=== PATIENT | male | born 1975 | race Caucasian/White ===

== ENCOUNTER 2017-08-30 11:07 | Emergency (ER) | payer BC ==
[2017-08-30 12:16] VITALS: BP 139/91
--- NOTE | 2017-08-30 12:39 | UC ---
Lower Extremity/Ankle HPI - HPI Summary HPI Summary: 42 y/o male presents to the urgent care c/o first knuckle big toe pain since yesterday. Pt reports is progressively getting worse w/ mild redness and swelling. Pain is 5/10 at rest and 7/10 w/ walking. Pt denies any injury or HX of GOUT. Pt has not taking anything to alleviate symptoms. Pt deneis SOB, chest pain, abdominal pain, N/V/D. He has not seen his PCP for the past year. - History of Current Complaint Chief Complaint: UCLowerExtremity Stated Complaint: SWOLLEN TOE Time Seen by Provider: 08/30/17 12:36 Hx Obtained From: Patient Onset/Duration: Gradual Onset, Lasting Days - 1 day, Still Present, Worse Since - this morning Severity Initially: Moderate Severity Currently: Moderate Pain Intensity: 7 - w/ movement Pain Scale Used: 0-10 Numeric Aggravating Factor(s): Ambulation Alleviating Factor(s): Rest, OTC Meds Able to Bear Weight: Yes - Risk Factors Gout Risk Factors: Age Over 40, Male, Hypertension, Obesity DVT Risk Factors: Negative Septic Arthritis Risk Factor: Negative - Allergies/Home Medications Allergies/Adverse Reactions: Allergies Allergy/AdvReac Type Severity Reaction Status Date / Time No Known Allergies Allergy Verified 08/30/17 12:07 Home Medications: Home Medications ALPRAZolam TAB* [Xanax TAB*] 0.5 mg PO DAILY 08/30/17 [History Confirmed ] Acetaminophen [Acetaminophen Extra Strength] 1,000 mg PO ONCE 08/30/17 [History Confirmed 08/30/17] Citalopram TAB* [Celexa TAB*] 20 mg PO DAILY 08/30/17 [History Confirmed ] Lisinopril TAB* [Prinivil TAB 10 MG*] 5 mg PO DAILY 08/30/17 [History Confirmed 08/30/17] PMH/Surg Hx/FS Hx/Imm Hx Previously Healthy: Yes Endocrine History: Dyslipidemia - diet control Cardiovascular History: Hypertension Other Neurological History: Herniated disc in the lower back Psychological History: Anxiety, Depression - Surgical History Surgical History: Yes Surgery Procedure, Year, and Place: hand surgery 1999 - Family History Known Family History: Positive: Cardiac Disease, Hypertension - Social History Occupation: Employed Full-time Lives: With Family Alcohol Use: Occasionally Substance Use Type: None Smoking Status (MU): Never Smoked Tobacco Review of Systems Constitutional: Negative Skin: Negative Eyes: Negative ENT: Negative Respiratory: Negative Cardiovascular: Negative Gastrointestinal: Negative Genitourinary: Negative Motor: Negative Neurovascular: Negative Musculoskeletal: Decreased ROM - RT first toe, Other: - RT toe pain Neurological: Negative Psychological: Negative Is Patient Immunocompromised?: No All Other Systems Reviewed And Are Negative: Yes Physical Exam - Summary Physical Exam Summary: Vital Signs Reviewed: Yes General : well developed, well nourished male w/o any apparent distress Eyes: Positive: Conjunctiva Clear - PERRLA, EOMI ENT: Positive: Normal ENT inspection, Hearing grossly normal, Pharynx normal, TMs normal Neck: Positive: Supple, Nontender, No Lymphadenopathy Respiratory: Positive: Chest non-tender, Lungs clear, Normal breath sounds, No respiratory distress Cardiovascular: Positive: RRR, No Murmur, Pulses Normal Abdomen Description: Positive: Nontender, No Organomegaly, Soft. Negative: CVA Tenderness (R), CVA Tenderness (L) Bowel Sounds: Positive: Present Musculoskeletal: Positive: Strength Intact, ROM Intact, No Edema, Other: - Foot/ Toes: Pt is able to bear weight but ambulate with mild limping. RT foot :No surface trauma, ecchymosis, erythema, lesions, ulcers or break in skin integrity. The R foot is without obvious asymmetry or deformity when compared to the L foot. No bony step-off, No tenderness to palpation over toes, point tenderness over the dorsal side of RT first MTPJ w/ mild redness, no warm or swelling observed, no tenderness of hindfoot, FROM plantar/dorsiflexion, inversion/eversion of the RT foot. Distal motor and neurovascular status are intact. Neurological Exam: Normal Psychological Exam: Normal Skin Exam: Normal Triage Information Reviewed: Yes Vital Signs: Initial Vital Signs Temp 98.9 F 08/30/17 12:10 Pulse 79 08/30/17 12:10 Resp 16 08/30/17 12:10 BP 139/91 08/30/17 12:10 Pulse Ox 99 08/30/17 12:10 Lower Extremity Course/Dx - Course Course Of Treatment: 42 y/o male presents to the urgent care c/o first knuckle big toe pain since yesterday. Pt reports is progressively getting worse w/ mild redness and swelling. Pain is 5/10 at rest and 7/10 w/ walking. Pt denies any injury or HX of GOUT. Pt has not taking anything to alleviate symptoms. Pt deneis SOB, chest pain, abdominal pain, N/V/D. He has not seen his PCP for the past year. Hx obtained. RT ffot X-ray ordered, Impression: Mild osteoarthritic change in the first MTPJ. Dx Acute Osteoarthritis. However Pt Rx Indometacin PO as directed below and foot immobilized w/ MONA bandage and Pt given a post-op shoe to avoid ecessive flexion of Rt foot. Advised RICE. Pt strongly advised to f/u w/ PCP in 2-3 days for full blood work to r/o gout and further managment in his HTN since his BP is elevated today. Also advised to decrease salt in his diet. Pt understood and agreed with D/C instructions. - Differential Dx/Diagnosis Differential Diagnosis/HQI/PQRI: Arthritis, Bursitis, Cellulitis, Contusion, Fracture (Closed), Gout, Sprain, Strain Provider Diagnoses: 1- Acute RT first Metatarsal phaleangeal joint pain. 2- Osteoarthritis. 3- Uncontrolled HTN Discharge - Sign-Out/Discharge Documenting (check all that apply): Discharge - Discharge Plan Condition: Stable Disposition: HOME Prescriptions: Indomethacin CAP* [Indocin CAP*] 50 mg PO TID PRN #[id number] cap PRN Reason: Pain Patient Education Materials: Osteoarthritis (ED), Gout (ED), Low-Sodium Diet ( ED) Forms: *Work Release Referrals: Ankit Siegel MD [Primary Care Provider] - 2 Days Additional Instructions: 1-Please take medications as directed after meals to alleviate pain and swelling. 2-Please apply ice, keep your foot elevated . Avoid strenuous exercise or standing for long periods of time 3- Please f/u with your PCP in 2-3 days for a full blood work up to r/o Gout and further evaluation and treatment. 4- If you develop fever, severe pain with swelling please go immediately to the ER for further management 5-Your BP is elevated today. please decrease salt in your diet, monitor BP and if it continues to be elevated please f/u with your PCP for further management - Billing Disposition and Condition Condition: STABLE Disposition: HOME
--- NOTE | 2017-08-30 13:30 | RAD ---
INDICATION: Right foot pain. TECHNIQUE: 3 views of the right foot were obtained. FINDINGS: The bones are in normal alignment. No fracture is seen. There is mild osteoarthritic change in the first metatarsal-phalangeal joint. IMPRESSION: MILD OSTEOARTHRITIC CHANGE IN THE FIRST METATARSAL-PHALANGEAL JOINT.
== END 2017-08-30 14:12 | disposition home or self-care (01) ==
LOC: UCEAST 11:07
DX: M79.674 Pain in right toe(s) (principal); M19.071 Primary osteoarthritis, right ankle and foot; E78.5 Hyperlipidemia, unspecified; I10 Essential (primary) hypertension; M51.26 Other intervertebral disc displacement, lumbar region; F41.9 Anxiety disorder, unspecified; F32.9 Major depressive disorder, single episode, unspecified
CPT/HCPCS: 99212; G0463